=== PATIENT | male | born 1970 | race African-American/Black ===

== ENCOUNTER 2025-02-03 18:53 | Emergency (ER) | payer OTHER, SELFPAY ==
--- NOTE | ~2025-02-03 | XR_ITS ---
XR chest 2V Ordering provider: Sameer Lanier History: 54 years Male with . dizziness . Comparison: None. FINDINGS: MEDIASTINUM: The cardiac silhouette is not enlarged. LUNGS: No infiltrates, effusions or pneumothorax. OTHER: No free air under the diaphragm. Degenerative changes of the spine. IMPRESSION: No acute cardiopulmonary pathology. Reviewed, dictated and finalized at location A.
--- NOTE | ~2025-02-03 | CT_ITS ---
CT brain wo con Ordering provider: Sameer Lanier MD History: 54 years Male with . vertigo . Comparison: None. Technique: CT of the head without contrast. Radiation reduction technique utilized.The dose-length product was 681 mGy-cm. FINDINGS: BRAIN PARENCHYMA AND CSF SPACES: No midline shift, mass effect or hemorrhage. The brain parenchyma a nd CSF spaces are otherwise normal. VISUALIZED PARANASAL SINUSES: Well aerated. MASTOIDS: Well aerated. BONES: The bones appear intact. SOFT TISSUES: Visualized nasopharynx is normal. Superficial soft tissues are normal. IMPRESSION: No acute intracranial findings. Reviewed, dictated and finalized at location A.
[2025-02-03 19:06] VITALS: BP 147/97; PULSE 84; RESP 17; TEMP 36.7; O2SAT 97
--- NOTE | 2025-02-03 19:56 | ECG_ITS ---
Test Date: 2025-02-03 20:27:17 Measurements Intervals Blanket Rate: 88 P: 3 NM: 194 QRS: 31 QRSD: 101 T: 14 QT: 372 QTc: 452 Interpretive Statements SINUS RHYTHM POSSIBLE LEFT ATRIAL ENLARGEMENT [-0.1mV P-WAVE IN V1/V2] PROBABLE INFERIOR MYOCARDIAL INFARCTION , PROBABLY OLD [35 ms Q WAVE IN II/aVF] NONSPECIFIC T-WAVE ABNORMALITY ABNORMAL ECG No previous ECG available for comparison Electronically Signed On 02-04-2025 09:53:33 CDT by Roge Ba M.D.
[2025-02-03 20:19] VITALS: BP 158/109; PULSE 92; RESP 18; O2SAT 98
--- NOTE | 2025-02-03 20:35 | ED_ITS ---
HPI - Dizziness General Chief Complaint: Dizziness Stated Complaint: Vertigo-no history-x 2 days Time Seen by Provider: 02/03/25 20:13 History of Present Illness HPI Narrative: 54-year-old male with history of hypertension presenting to the emergency department for dizziness x2 days consistent with vertigo. Patient states he woke up yesterday feeling dizzy like the room was spinning around him but no associated nausea, vomiting, headache, neck pain, vision changes. He called a friend who advised trying some Raymond maneuvers by himself and this made the symptoms worse and he got a prescription for meclizine which did improve his symptoms yesterday. He states he took the meclizine today with some minor relief but still having some vague symptoms. No trauma or injury. No history of chiropractic manipulations or trauma to the head or neck. No falls, states that he is able ambulate without assistance but states that he feels like the room is spinning around him. No visual deficits or hearing loss, muffled hearing or tinnitus. No recent fever, chills or infectious symptoms. No pain in the ears. No history of vertigo, on some antihypertensive regimen but no recent medication changes. Related Data Allergies Allergy/AdvReac Type Severity Reaction Status Date / Time No Known Allergies Allergy Verified 02/03/25 18:54 Review of Systems 2 Review of Systems: As reviewed above in HPI Exam 2 Narrative: GENERAL: [Well-appearing, well-nourished, and in no acute distress.] HEAD: [Normocephalic, atraumatic.] EYES: [PERRLA and EOMI.] ENT: Nares clear, no rhinorrhea or epistaxis. Mucous membranes moist. NECK: Supple. CHEST: [Clear to auscultation. No respiratory distress.] HEART: [Regular rate and rhythm]. No murmur heard. [Normal peripheral pulses.] ABDOMEN: [Soft, nondistended], [nontender], [No rigidity or guarding] EXTREMITIES: Normal range of motion. [No edema.] SKIN: Warm, dry, no rash. NEURO: [No focal deficits]. Alert and oriented [x3.] Ambulates in a straight line, no ataxia in the arms or legs, no motor or sensation deficits PSYCH: [Normal mood and affect.] Course Vital Signs Vital signs: Vital Signs Temperature 36.7 C 02/03/25 19:06 Pulse Rate 84 02/03/25 19:06 Respiratory Rate 17 02/03/25 19:06 Blood Pressure 147/97 H 02/03/25 19:06 Pulse Oximetry 97 02/03/25 19:06 Oxygen Delivery Room Air 02/03/25 19:06 Temperature 36.7 C 02/03/25 19:06 Pulse Rate 92 02/03/25 20:19 Respiratory Rate 18 02/03/25 20:19 Blood Pressure 158/109 H 02/03/25 20:19 Pulse Oximetry 98 02/03/25 20:19 Oxygen Delivery Room Air 02/03/25 19:06 MDM - Dizziness MDM Narrative Medical decision making narrative: 54-year-old male with history of hypertension presenting with 2 days of vertiginous symptoms. Describes room spinning sensations but no syncope, fever, chills, shortness a breath, chest pain, neck pain, headache, visual deficits or multiple hearing. No trauma. He is otherwise well-appearing ambulatory in a straight line without any difficulty, no ataxia no motor or sensory deficits. He has normal vital signs aside from some stable hypertension. No recent medication changes. Considerations presently are for benign positional paroxysmal vertigo, less likely central etiology of vertigo given his historical features. Workup was ordered including CBC, CMP, magnesium, EKG, chest x-ray and a CT of the brain. He was given Reglan and diphenhydramine as well as a fluid bolus and re-evaluated. Patient re-evaluated after Reglan Benadryl had significant improvement. He was ambulatory without difficulty. His workup was unremarkable. No leukocytosis or anemia. Normal EKG, CT head without any acute intracranial findings. Patient's sinus symptoms are consistent with benign paroxysmal positional vertigo or other peripheral vertigo causes and he can be safely discharged with prescriptions for Reglan as needed as well as his meclizine that has helped him at home and he will be referred to an quantitative researcher for outpatient evaluation. Patient given return precautions and safely discharged. Medical Records Attestation: I reviewed the patient's medical records. Lab Data Attestation: I reviewed the patient's lab results. 02/03/25 20:29 02/03/25 20:29 Labs: Lab Results 02/03/25 Range/Units 20:29 WBC 9.0 (4.5-10.0) K/mm3 RBC 5.76 (4.6-6.20) M/mm3 Hgb 15.4 (14.0-18.0) g/dL Hct 47.5 (42.0-52.0) % MCV 82.5 (80-100) fl MCH 26.7 (26-34) pg MCHC 32.4 (32-36) g/dl RDW 14.6 H (11.5-14.5) % Plt Count 267 (150-375) k/mm3 MPV 9.4 (7.4-10.4) fl Immature Gran % (Auto) 0.3 (0-0.5) % Neut % (Auto) 62.6 (45.5-73.1) % Lymph % (Auto) 26.3 (18.3-44.2) % [place] % (Auto) 6.9 (2.6-8.5) % Eos % (Auto) 2.9 (0-4.4) % Baso % (Auto) 1.0 (0.2-1.2) % Lymph # (Auto) 2.37 (0.9-3.2) K/mm3 [place] # (Auto) 0.6 (0.1-0.6) K/mm3 Eos # (Auto) 0.3 (0-0.3) K/mm3 Baso # (Auto) 0.1 (0.0-0.1) K/mm3 Abs Immat Gran (auto) 0.03 (0.00-0.031) K/mm3 Absolute Neuts (auto) 5.6 (1.3-6.7) K/mm3 Absolute Nucleated RBC 0.000 (0.0-0.012) K/mm3 Nucleated RBC % 0.0 (0.0-0.2) % Sodium 137 (137-145) mmol/L Potassium 3.4 (3.4-5.0) mmol/L Chloride 104 (98-107) mmol/L Carbon Dioxide 23 (22-30) mmol/L Anion Gap 10 (4-12) mmol/L BUN 25 H (9-20) mg/dL Creatinine 1.14 (0.7-1.3) mg/dL Estim Creat Clear Calc 86 ml/min Estimated GFR > 60 (59 - ) Glucose 104 (65-110) mg/dL Calcium 9.3 (8.4-10.2) mg/dL Total Bilirubin 0.8 (0.2-1.3) mg/dL AST 43 (17-59) U/L ALT 45 (6-50) U/L Alkaline Phosphatase 58 (38-126) U/L Total Protein 8.0 (6.3-8.2) g/dL Albumin 4.6 (3.5-5.1) g/dL Imaging Data Attestation: I personally reviewed and interpreted this imaging study as follows: My impression: Impressions Chest X-Ray 02/03/25 21:00 IMPRESSION: No acute cardiopulmonary pathology. Head CT 02/03/25 21:23 IMPRESSION: No acute intracranial findings. ECG Data EKG #1: Attestation: I personally reviewed and interpreted this ECG as follows: ECG completion date: 02/03/25 ECG completion time: 20:27 Prior ECG tracings: not available for review Interpretation: QTC 452, IN interval 194, rate of 88 beats per minute, normal sinus rhythm, no ST segment elevations, depressions acute inversions or ectopy. No previous EKG for comparison. final interpretation is normal sinus rhythm. Discharge Plan Discharge Clinical Impression: Benign paroxysmal positional vertigo Patient Disposition: Home Condition: Stable Instructions: Antibiotic Form, Vertigo (ED), Benign Paroxysmal Positional Vertigo (ED), Dizziness (ED) Additional Instructions: Your imaging studies and laboratory assessments are reassuring, no signs of any causes for central vertigo and your symptom are very classical for benign paroxysmal positional vertigo which is related to the equilibrium system in your ears. Continue taking meclizine that you were prescribed at home and will also send you home with Reglan which can help. You can take these in combination as needed. If symptoms worsen or you develop any differences such as intractable nausea, headaches, inability to ambulate or any other concerns please return to the emergency department otherwise follow-up with the primary care provider and the quantitative researcher that we will refer you to. Patient Language: Iraqi Prescriptions: New metoclopramide HCl [Reglan] 5 mg tablet 5 mg PO Q8H PRN (Reason: vertigo) Qty: 10 0RF Follow-up/Referrals: PHYSICIAN NOT ON STAFF,NONSTAFF [Non-Staff] - Time of Disposition: 21:43
[2025-02-03 20:36] LABS: Basophils Absolute Auto 0.1 K/mm3 (0.0-0.1); Eosinophils Absolute Auto 0.3 K/mm3 (0-0.3); Eosinophils Percent Auto 2.9 % (0-4.4); Hematocrit 47.5 % (42.0-52.0); Hemoglobin 15.4 g/dL (14.0-18.0); Immature Granulocyte Absolute 0.03 K/mm3 (0.00-0.031); Immature Granulocyte Percent A 0.3 % (0-0.5); Lymphocytes Absolute Auto 2.37 K/mm3 (0.9-3.2); Lymphocytes Percent Auto 26.3 % (18.3-44.2); Mean Corpuscular HGB Conc 32.4 g/dl (32-36); Mean Corpuscular Hemoglobin 26.7 pg (26-34); Mean Corpuscular Volume 82.5 fl (80-100); Mean Platelet Volume 9.4 fl (7.4-10.4); Monocytes Absolute Auto 0.6 K/mm3 (0.1-0.6); Monocytes Percent Auto 6.9 % (2.6-8.5); Neutrophils Absolute Auto 5.6 K/mm3 (1.3-6.7); Neutrophils Percent Auto 62.6 % (45.5-73.1); Platelet Count Result 267 k/mm3 (150-375); Red Blood Count 5.76 M/mm3 (4.6-6.20); Red Cell Distribution Width 14.6 % (11.5-14.5)
[2025-02-03] MEDS: SODIUM CHLORIDE 0.9% IV 1,000 ML 999 ML IV CONT (20:37)
[2025-02-03] MEDS: diphenhydrAMINE HCl INJ 50 MG/ML VIAL 25 MG IV PUSH (20:37)
[2025-02-03] MEDS: METOCLOPRAMIDE HCL INJ 10 MG/2 ML VIAL IV PUSH (20:37)
[2025-02-03 20:48] LABS: Alanine Aminotransferase 45 U/L (6-50); Albumin Level 4.6 g/dL (3.5-5.1); Alkaline Phosphatase 58 U/L (38-126); Anion Gap 10 mmol/L (4-12); Aspartate Amino Transferase 43 U/L (17-59); Bilirubin,Total 0.8 mg/dL (0.2-1.3); Blood Urea Nitrogen 25 mg/dL (9-20); Calcium 9.3 mg/dL (8.4-10.2); Carbon Dioxide 23 mmol/L (22-30); Chloride 104 mmol/L (98-107); Estimated CRCL calculation 86 ml/min; Estimated Glomerular Filt Rate > 60; Glucose 104 mg/dL (65-110); Potassium 3.4 mmol/L (3.4-5.0); Sodium 137 mmol/L (137-145)
--- OUTSIDE RECORDS SUMMARY | 2025-02-03 20:59 | XMS_ITS | Referral Summary ---
Author Organization [address] Address [address] [address] Care Team Providers Care Automobile Bumper Straightener Name Role Phone Alfred Kelly MD Primary Care Provider Som Reeves ROLL ICER MACHINE Unavailable [phone] Encounters Date Type Department Care Team Description 02/01/2025 Telephone [facility] Primary Care at [address] [address] Alfred Kelly MD Prior Auth (Wegovy ) 01/26/2025 10:00 AM CDT Office Visit [facility] Gastroenterology at [address] [place] [address] Som Reeves NP Chronic constipation with overflow (Primary Dx); Low fecal elastase level; Bleeding hemorrhoids; Hepatic steatosis; Gastroesophageal reflux disease without esophagitis 12/28/2024 2:39 PM CDT Anesthesia Event [address] [address] Cristopher Tolbert DO Kory, Christopher James, MD 12/28/2024 1:30 PM CDT - 12/28/2024 2:00 PM CDT Surgery [address] [address] Thi Tomas MD SIGMOID BAND LIGATION 12/28/2024 12:30 PM CDT - 12/28/2024 3:41 PM CDT Hospital Encounter [facility] [address] [place] [address] Thi Tomas MD Discharge Disposition: Discharge to home or self care 11/18/2024 6:15 AM RAILROAD PASSENGER AGENT - 11/18/2024 11:59 PM RAILROAD PASSENGER AGENT Hospital Encounter [address] [address] Diarrhea, unspecified type Discharge Disposition: Discharge to home or self care 11/16/2024 Results Follow-Up [facility] Gastroenterology at [address] [place] [address] Som Reeves NP 11/16/2024 9:53 AM RAILROAD PASSENGER AGENT - 11/16/2024 11:59 PM RAILROAD PASSENGER AGENT Hospital Encounter [address] [address] Diarrhea, unspecified type; History of colitis Discharge Disposition: Discharge to home or self care 11/16/2024 9:00 AM RAILROAD PASSENGER AGENT Office Visit [facility] Gastroenterology at [address] [address] Som Reeves NP Diarrhea, unspecified type (Primary Dx); History of colitis; Bleeding hemorrhoids; Hepatic steatosis; Gastroesophageal reflux disease without esophagitis 11/08/2024 Telephone [facility] Gastroenterology at [address] [address] Bria Julio from Last 3 Months Allergies No known active allergies Medications aspirin 81 mg enteric coated tablet Take 1 tablet (81 mg total) by mouth daily Active cholecalciferol (VITAMIN D-3) 3,000 unit tablet Take 0.6667 tablets (2,000 Units total) by mouth daily Active hydrocortisone (ANUSOL-HC) 25 mg suppository Insert 1 suppository (25 mg total) into the rectum 2 (two) times a day as needed for hemorrhoids 24 suppository 3 024 Active hydroCHLOROthiazi de (HYDRODIURIL) 50 mg tabletIndications :Essential hypertension TAKE 1 TABLET BY MOUTH EVERY DAY 90 tablet 1 025 Active atorvastatin (LIPITOR) 20 mg tabletIndications :Hypercholesterem ia Take 1 tablet (20 mg total) by mouth daily 90 tablet [address] (PROTONIX) 20 mg EC tabletIndications :Gastroesophageal reflux disease without esophagitis,Hiata l hernia Take 1 tablet (20 mg total) by mouth daily before breakfast 90 tablet 3 025 Active losartan (COZAAR) 100 mg tabletIndications :Essential hypertension Take 1 tablet (100 mg total) by mouth daily 90 tablet 3 025 Active levothyroxine (SYNTHROID) 112 mcg tabletIndications :Acquired hypothyroidism Take 1 tablet (112 mcg total) by mouth early childhood educator aide before breakfast 90 tablet 3 025 Active Wegovy 2.4 mg/0.75 mL auto-injectorIndi cations:Class 1 obesity due to excess calories with serious comorbidity and body mass index (BMI) of 33.0 to 33.9 in adult Inject 2.4 mg under the skin every 7 days 2 mL 2 025 Active Wegovy 1.7 mg/0.75 mL auto-injector INJECT 1.7MG SUBCUTANEOUSLY WEEKLY 024 2024 Disconti nued(Alt ernate therapy) Wegovy 2.4 mg/0.75 mL auto-injector Inject 2.4 mg under the skin every 7 days 025 2024 Disconti nued(Reo rder) Active Problems Problem Noted Date Diagnosed Date Chronic constipation with overflow 01/26/2025 Bleeding hemorrhoids 11/08/2024 Overview (12/28/2024): Flex SIg 12/2024 Patient Profile: This is a 54 year old male. The patient had recurrent episodes of bright red bleeding per rectum Procedure: Flexible Sigmoidoscopy Indications: Rectal hemorrhage Referring MD: Alfred Kelly M.D. Providers: Thi Tomas M.D. Impression: - Small external hemorrhoids. - Internal hemorrhoids. Medium-sized and congested with stigmata bleeding Banded. - No specimens collected. Pre-diabetes 11/05/2024 Assessment & Plan (11/14/2024 11:32 PM RAILROAD PASSENGER AGENT): New, noted on 10/2024 with level 6.0 To focus on lifestyle and diet management Will recheck labs for next visit Lab Results Component Value Date HGBA1C 6.0 (H) 11/04/2024 Bleeding hemorrhoid 08/16/2024 Assessment & Plan (11/04/2024 9:09 AM RAILROAD PASSENGER AGENT): - recurring condition, not at goal - follows with GI - s/p Colonosocpy on 02/2024 with result as shown below - no constipation, no rectal pain reported - has tried anusol-hcl suppository from GI - will touch base with GI due to ongoing symptoms that is not alleviated Colonoscopy 02/2024 Impression: - The examined portion of the ileum was normal. - Diverticulosis in the entire examined colon. - Mildly erythematous mucosa in the recto-sigmoid colon. Biopsied. - External and internal hemorrhoids. Fatty liver 03/01/2024 Overview (03/01/2024): CT A/p 02/2024 Assessment & Plan (04/13/2024 9:38 AM CDT): Noted on recent CT abdomen and pelvis. Counseled on healthy diet, exercise, weight loss. Keep alcohol in moderation. Hiatal hernia 10/10/2023 Assessment & Plan (11/04/2024 9:00 AM RAILROAD PASSENGER AGENT): Noted on prior EGD. We will put him at higher risk for recurrent acid reflux issues especially if does not follow diet and lifestyle modification Assessment & Plan (10/10/2023 4:12 PM RAILROAD PASSENGER AGENT): Noted on prior EGD. We will put him at higher risk for recurrent acid reflux issues especially if does not follow diet and lifestyle modification Acquired hypothyroidism 10/10/2023 Assessment & Plan (11/14/2024 11:31 PM RAILROAD PASSENGER AGENT): - chronic condition, stable status - currently on Levothyroxine 112 mcg daily - recheck labs, order placed - continue current management Lab Results Component Value Date TSH 1.80 11/04/2024 Assessment & Plan (04/13/2024 9:37 AM CDT): Chronic. May have a degree of slight under replacement given some fatigue and weight gain. Check thyroid level and adjust as needed Assessment & Plan (10/10/2023 4:13 PM RAILROAD PASSENGER AGENT): Chronic. Biochemically and clinically euthyroid. He will get me a copy of the recent TSH to review Class 1 obesity due to exces s calories with serious comorbidity and body mass index (BMI) of 33.0 to 33.9 in adult 10/10/2023 Assessment & Plan (11/14/2024 11:33 PM RAILROAD PASSENGER AGENT): Wt Readings from Last 3 Encounters: 11/04/24 113.7 kg (250 lb 11.2 oz) 08/16/24 115.3 kg (254 lb 3.2 oz) 04/13/24 124.2 kg (273 lb 14.4 oz) Body mass index is 33.08 kg/m . - chronic condition, not at goal - BMI Follow-up includes: nutrition counseling, exercise counseling and education provided - Recommend to exercise at least 30 minutes moderate to vigorous exercise most days of the week. (minimum 150 minutes weekly) - has been on Wegovy since 07/2024 - has had about 30 lbs of weight loss since being on it - to resume Wegovy which he had stopped for Gi disturbance Assessment & Plan (04/13/2024 9:38 AM CDT): Chronic. Suboptimally controlled and worsening. Encouraged healthy diet, exercise, weight loss. Patient is interested in doing Wegovy. If thyroid level is not out arrange then we can start a course of Wegovy. We did discuss side effects and use. He does believe his insurance covers it and has a letter stating that it will be covered and benefits for this year as long as he enrolls in his weight loss management plan as well Assessment & Plan (10/10/2023 4:15 PM RAILROAD PASSENGER AGENT): Suboptimally controlled. Counseled on healthy diet, exercise and weight loss as able GERD (gastroesophageal reflux disease) Assessment & Plan (11/04/2024 11:12 AM RAILROAD PASSENGER AGENT): - chronic condition, stable status - currently on Pantoprazole DR 20 mg daily - s/p EGD in remote past in [place] 5-10 years ago per patient, noted to have hiatal hernia in past EGD - continue current management Assessment & Plan (10/10/2023 4:11 PM RAILROAD PASSENGER AGENT): Chronic. Controlled with pantoprazole 20 mg daily. Continue for now. He will be at increased risk for having recurrent issues given history of hiatal hernia. Hopefully through improve dietary changes he will be eventually able to get off medication but this may not be possible. 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 He was under the observation of Dermatology and Oncology in [place]. Referral to Dermatology for observation here Essential hypertension 08/30/2019 Assessment & Plan (11/14/2024 11:31 PM RAILROAD PASSENGER AGENT): Blood Pressure Management BP Readings from Last 3 Encounters: 11/04/24 134/82 08/16/24 136/88 04/13/24 112/82 Chronic condition Status - is adequately controlled. Current medications are: HCTZ 50 mg daily, Losartan 100 mg daily Patient is compliant with medications. Patient denies any side effects or adverse side effects from the medication/s. Follow a low salt diet Monitor blood pressure regularly at home Continue current management unless change made above The ASCVD Risk score (Cory ANAYA, et al., 2019) failed to calculate for the following reasons: The valid total cholesterol range is 130 to 320 mg/dL Lab Results Component Value Date LDLCALC 59 11/04/2024 Lab Results Component Value Date GLUCOSE 97 11/04/2024 CALCIUM 9.9 11/04/2024 SODIUM 139 11/04/2024 POTASSIUM 3.9 11/04/2024 CO2 25 11/04/2024 CHLORIDE 101 11/04/2024 BUNSER 16 11/04/2024 CREATININE 1.11 11/04/2024 Assessment & Plan (04/13/2024 9:37 AM CDT): Chronic. HTN controlled. Cont prescription Rx as indicated in HPI under HTN diagnosis. Low sodium diet (DASH or Mediterranean), exercise, wt loss (if over weight) discussed Assessment & Plan (10/10/2023 4:11 PM RAILROAD PASSENGER AGENT): Chronic. Controlled on rechecked. He is currently tolerating the higher dose of hydrochlorothiazide we will we feel at that dose. Other blood pressure medications refilled. Encouraged healthy diet, salt restriction, regular physical activity and weight loss. Encouraged home blood pressure monitoring with goal less than 140/90 Hypercholesteremia 08/30/2019 Assessment & Plan (11/14/2024 11:31 PM RAILROAD PASSENGER AGENT): - chronic condition - status: is adequately controlled. - current management/medications: Atorvastatin 20 mg daily - other comorbid conditions:hypertension, obesity - patient is compliant with medications. - most recent LDL as shown below - maintain a healthy weight, diet - will monitor closely - continue current management, recheck labs, order placed Lab Results Component Value Date LDLCALC 59 11/04/2024 Lab Results Component Value Date ALT 40 11/04/2024 AST 36 11/04/2024 ALKPHOS 62 11/04/2024 BILITOT 0.5 11/04/2024 Assessment & Plan (04/13/2024 9:37 AM CDT): Chronic. Tolerates medication. Check cholesterol level and adjust medication as needed Assessment & Plan (10/10/2023 4:12 PM RAILROAD PASSENGER AGENT): Chronic. Tolerates cholesterol medication. LDL was less than 70 on his recent labs. Patient will sign up for [employer] and send me a copy of the recent labs he would done through his last PCP Psoriasis 08/30/2019 Assessment & Plan (10/10/2023 4:12 PM RAILROAD PASSENGER AGENT): Chronic. Minimal symptoms currently. He has not currently on any disease modifying medication. We will have him see Dermatology Resolved Problems Problem Noted Date Diagnosed Date Resolved Date Non-recurrent bilateral ingu inal hernia without obstruction or gangrene 03/01/2024 11/04/19 25 Umbilical hernia without obs truction and without gangrene 03/01/2024 11/04/2024 Diverticulosis 03/01/2024 11/04/2024 Bright red blood per rectum 01/27/2024 11/04/2024 Juan blood in stool 01/27/2024 024 Immunizations Immunization Administration Dates Next Due Influenza, Trivalent, IM (MDV) 07/23/2019 Influenza, Unspecified 07/23/2024,2023(Deferred: Patient Refused),08/26/2022 Pneumococcal Conjugate Pcv20 08/26/2022 Tdap 08/23/2020 ZOSTER Recombinant 03/19/2021,08/23/2020 Social History Tobacco Use Types Packs/Day Years Used Date Smoking Tobacco: Never Passive Smoke Exposure: Never Smokeless Tobacco: Never Tobacco Cessation:Counseling Given: Not Answered AUDIT-C Answer Date Recorded Q1: How often do you have a drink containing alc ohol? Monthly or less 01/26/2025 Q2: How many drinks containi ng alcohol do you have on a typical day when you are drinking? 3 or 4 01/26/2025 Q3: How often do you have si x or more drinks on one occasion? Weekly 01/26/2025 PHQ-2 Answer Date Recorded PHQ-2 Total Score (If total score is 3 or more points, staff should administer the PHQ-9) 0 11/04/2024 Personal Safety Answer Date Recorded Have you ever been in or are you currently in a harmful physical or emotional relationship or is someone making you feel afraid or unsafe? Denies 12/28/2024 Sex and Gender Information Value Date Recorded Sex Assigned at Not on file Legal Sex Male 11:46 AM RAILROAD PASSENGER AGENT Gender Identity Not on file Sexual Orientation Not on file Last Filed Vital Signs Vital Sign Reading Time Taken Comments Blood Pressure 149/91 01/26/2025 9:58 AM CDT Pulse 84 01/26/2025 9:58 AM CDT Temperature 36.8 C (98.2 F) 12/28/2024 3:26 PM CDT Respiratory Rate 18 12/28/2024 3:26 PM CDT Oxygen Saturation 97% 01/26/2025 9:58 AM CDT Inhaled Oxygen Concentration - - Weight 115.2 kg (254 lb) 01/26/2025 9:58 AM CDT Height 185.4 cm (6' 1 ) 01/26/2025 9:58 AM CDT Body Mass Index 33.51 01/26/2025 9:58 AM CDT Plan of Treatment Not on file Procedures Procedure Name Priority Date/Time Associated Diagnosis Comments SIGMOID BAND LIGATION 12/28/2024 2:32 PM CDT Bleeding hemorrhoids Case Notes Hemorrhoid banding needed FLEXIBLE SIGMOIDOSCOPY 12:33 PM CDT PANCREATIC ELASTASE, STOOL Routine 11/18/2024 6:15 AM RAILROAD PASSENGER AGENT Diarrhea, unspecified type CALPROTECTIN, FECAL Routine 11/18/2024 6:15 AM RAILROAD PASSENGER AGENT Diarrhea, unspecified type LEUKOCYTES, FECAL Routine 11/18/2024 6:1 5 AM RAILROAD PASSENGER AGENT Diarrhea, unspecified type H. PYLORI ANTIGEN, STOOL Routine 11/18/2024 6:15 AM RAILROAD PASSENGER AGENT Diarrhea, unspecified type CRYPTOSPORIDIUM AND GIARDIA ANTIGEN ASSAY Routine 11/18/2024 6:15 AM RAILROAD PASSENGER AGENT Diarrhea, unspecified type C. DIFFICILE TESTING Routine 11/18/2024 6:15 AM RAILROAD PASSENGER AGENT Diarrhea, unspecified type STOOL CULTURE Routine 11/18/2024 6:15 AM RAILROAD PASSENGER AGENT Diarrhea, unspecified type XR KUB Schedule ESPERANZA, Read Routine (Patient lives out of area) 11/16/2024 10:04 AM RAILROAD PASSENGER AGENT Diarrhea, unspecified type History of colitis PSA SCREEN Routine 11/04/2024 9:13 AM RAILROAD PASSENGER AGENT Prostate cancer screening HEPATITIS PANEL, ACUTE Routine 1:35 PM CDT Hepatic steatosis COLONOSCOPY 03/03/2024 8:11 AM CDT from Last 3 Months or Most Recently Relevant to Health Maintenance Results * Flexible Sigmoidoscopy (12/28/2024 12:33 PM CDT) Anatomical Region Laterality Modality Other Narrative Procedure Note Thi Tomas MD - 12/28/2024 12:33 PM CDT [facility] Patient Name: Cristina Rain Procedure Date: 12/28/2024 12:33 PM Date of : 1970 Admit Type: Outpatient Age: 54 Gender: Male Attending MD: Thi Tomas M.D. Room: [facility] ENDOSCOPY ROOM 1 Note Status: Finalized Patient Profile: This is a 54 year old male. The patient hadrecurrent episodes of bright red bleeding per rectum Procedure: Flexible Sigmoidoscopy Indications: Rectal hemorrhage Referring MD: Alfred Kelly M.D. Providers: Thi Tomas M.D. Impression: - Small external hemorrhoids. - Internal hemorrhoids. Medium-sized and congested with stigmata bleeding Banded. - No specimens collected. Recommendation: - Continue present medications. - Use [id number] fiber supplements daily. Medicines: Monitored Anesthesia Care Complications: No immediate complications. Estimated Blood Loss: Estimated blood loss: none. Procedure: Pre-Anesthesia Assessment: - Prior to the procedure, a History and Physicalwas performed, and patient medications and allergieswere reviewed. The patient's tolerance of previous anesthesia was also reviewed. The risks andbenefits of the procedure and the sedation options and risks were discussed with the patient. All questions were answered, and informed consent was obtained. Prior Anticoagulants: The patient has taken noanticoagulant or antiplatelet agents. ASA Grade Assessment: Per anesthesia note and evaluation. After reviewing the risks and benefits, the patient was deemed in satisfactory condition to undergo the procedure. The benefits, risks, and alternatives to theprocedure and sedation were discussed and informed consentwas obtained. The Endoscope [id number] was introduced through the anus and advanced to the the sigmoid colon. The flexible sigmoidoscopy was accomplished without difficulty. The patienttolerated the procedure well. The quality of the bowel preparation was adequate. Findings: Hemorrhoids were found on perianal exam. The sigmoid colon appeared normal. Diverticulosis noted in thesigmoid colon Internal hemorrhoids were found during retroflexion. The hemorrhoids were medium-sized congested with stigmata of bleeding. Three bandswere successfully placed. There was no bleeding during and at the end ofthe procedure. Electronically signed by Thi Tomas M.D. Thi Tomas M.D. 12/28/2024 3:00:36 PM Number of Addenda: 0 Note Initiated On: 12/28/2024 12:33 PM Procedure Code(s): --- Professional --- 90162, Sigmoidoscopy, flexible; with band ligation(s) (eg,hemorrhoids) Diagnosis Code(s): --- Professional --- K64.8, Other hemorrhoids K62.5, Hemorrhage of anus and rectum CPT copyright 2020 [employer]. All rights reserved. The codes documented in this report are preliminary and upon wall attendant reviewmay be revised to meet current compliance requirements. Recognized by the [employer] for promoting quality in endoscopy Thi Tomas MD ENDOSCOPY PROCEDURES Final Result * C. difficile testing Stool (11/18/2024 6:15 AM RAILROAD PASSENGER AGENT) Pathologist [facility] Result Negative Negative Toxin Result Negative Negative [facility] ([place]) C. diff result Negative, free toxin Negative, free toxin [facility] ([place]) C. diff interp Negative for toxigenic Clostridioides (Clostridium) difficile. Analysis was performed using a glutamate dehydrogenase antigen detection assay combined with a C. difficile toxin detection assay. [facility] ([place] Stool 11/18/2024 6:15 AM RAILROAD PASSENGER AGENT 11/18/2024 7:46 AM RAILROAD PASSENGER AGENT Som Reeves NP LAB MICROBIOLOGY - GENERAL ORDERABLES Final Result Performing Organization Address [facility] de Phone Number [facility] ([place]) [address] [facility] [place] [address] * (ABNORMAL) Calprotectin, fecal (11/18/2024 6:15 AM RAILROAD PASSENGER AGENT) [facility] Calprotectin, fecal 105(H) <50.0 (Normal) mcg/g [facility] ref Lab Comment: Interpretation: Borderline (50.0-120 mcg/g) Test Performed by: [place] [address] [employer] Coxswain: Brittney Kinney Ph.D.; CLIA# [id number] Stool 11/18/2024 6:15 AM RAILROAD PASSENGER AGENT 11/18/2024 7:46 AM RAILROAD PASSENGER AGENT Som Reeves NP LAB BODY FLUIDS AND STOOLS ORDERABLES Final Result Performing Organization Address City/[facility]/ZIP Co de Phone Number [facility] ([place]) 1 [facility] [place] [address] [place] ref Lab * Leukocytes, fecal (11/18/2024 6:15 AM RAILROAD PASSENGER AGENT) WBC, fecal No leukocytes No leukocytes Comment: Interpretive Data Testing performed by microsopy. Current Interpretive Data was last revised on 2023 Stool 11/18/2024 6:15 AM RAILROAD PASSENGER AGENT 11/18/2024 7:46 AM RAILROAD PASSENGER AGENT [facility] ROLL ICER MACHINE LAB BODY FLUIDS AND STOOLS ORDERABLES Final Result [facility] ([place]) 1 [facility] [employer] [facility] [place], [place] [id number] * Cryptosporidium and Giardia antigen assay Stool (11/18/2024 6:15 AM RAILROAD PASSENGER AGENT) Pathologist [facility] Giardia Ag Negative Negative Comment:Testing performed by : [facility], [address] [place] [address]., [address] Cryptosporidium Ag Negative Negative [facility] ([place]) Comment: Interpretive data: Testing performed by the [facility] Microbiology Laboratory using an immunoassay that detects Cryptosporidium and Giardia antigens in stool specimens. If comprehensive examination for ova and parasites is required, please request Ova and Parasite Examination . Testing performed by: [facility], [address] [place]., [address] Stool 11/18/2024 6:15 AM RAILROAD PASSENGER AGENT 11/18/2024 10:09 AM RAILROAD PASSENGER AGENT [facility] LAB MICROBIOLOGY - GENERAL ORDERABLES Final Result [facility] ([place]) [address] [facility] [place] [address] * (ABNORMAL) Pancreatic elastase, stool (11/18/2024 6:15 AM RAILROAD PASSENGER AGENT) Pancreatic elastase, stool 59(L) >200 (Normal) mcg/g [place] ref Lab Comment: Interpretation: Abnormal (<100 mcg/g); Consistent with pancreatic insufficiency Test Performed by: [facility] [address] [place] [address] [employer] Coxswain: Brittney Kinney Ph.D.; IA# [id number] Stool 11/18/2024 6:15 AM RAILROAD PASSENGER AGENT 11/18/2024 7:46 AM RAILROAD PASSENGER AGENT [facility] ROLL ICER MACHINE LAB BODY FLUIDS AND STOOLS ORDERABLES Final Result [facility] ([place]) [address] [place] [address] [facility] Lab * H. pylori antigen, stool Stool (11/18/2024 6:15 AM RAILROAD PASSENGER AGENT) H. pylori Ag, stool Negative Negative Comment: Interpretative Data Testing performed at the [facility]biology Laboratory using the Gliphian HpSA lateral flow immunoassay that detects Helicobacter pylori antigen in feces. This test is FDA cleared and its performance characteristics have been verified by the performing laboratory. False negative H. pylori antigen results may occur in patients on antimicrobials, proton pump inhibitors, or bismuth preparations; if clinically indicated, testing should be repeated on a new specimen two weeks after discontinuing these treatments. Interpretative data last revised September 2020. Testing performed by: [facility], [address] [place] [address] Stool 11/18/2024 6:15 AM RAILROAD PASSENGER AGENT 11/18/2024 12:29 PM RAILROAD PASSENGER AGENT [facility] ROLL ICER MACHINE LAB MICROBIOLOGY - GENERAL ORDERABLES Final Result [facility] ([place]) [address] [facility] [place] [address] * Stool culture Stool Rectum (11/18/2024 6:15 AM RAILROAD PASSENGER AGENT) Direct Specimen Exam Shiga Toxin Testing: Antigen detection assay for Shiga-toxin NEGATIVE for Shiga Toxin 1 and Shiga Toxin 2. Comment:Testing performed by : [facility], [address] [place]., [address] Report Final Report: No growth of enteric bacterial pathogens JORGE CHEW (LINDA) Comment:Testing performed by : [facility], [address] [place]., [address] Stool (Rectum) 11/18/2024 6: 15 AM RAILROAD PASSENGER AGENT 11/18/2024 10:07 AM RAILROAD PASSENGER AGENT Narrative JORGE CHEW (LINDA) - 11/22/2024 8:56 AM RAILROAD PASSENGER AGENT Testing performed by [facility] ([phone]). Routine stool cultures include procedures to detect Salmonella, Shigella, Edwardsiella, Aeromonas, Pleisiomonas, Campylobacter, Yersinia, E. coli O157, and Shiga-like toxins. Vibrio is cultured only upon special request. If Vibrio is suspected, please call the laboratory at [phone]. Interpretive data was last updated January 27, 2017. Som Reeves [facility] MICROBIOLOGY - GENERAL ORDERABLES Final Result JORGE CHEW (LINDA) 1 [facility] [place] [address] * XR Kub (11/16/2024 10:04 AM RAILROAD PASSENGER AGENT) Anatomical Region Laterality Modality Body, Abdomen N/A Computed Radiogr aphy 11/16/2024 12:1 3 PM RAILROAD PASSENGER AGENT Narrative 11/16/2024 12:14 PM RAILROAD PASSENGER AGENT EXAM DESCRIPTION: XR KUB REASON FOR STUDY: Having diarrhea issues. On Wegovy. Rule out constipation as cause of diarrhea. What is fecal load and gas pattern?, What is stool and gas pattern? Rule out constipation. Complaints of diarrhea x 1 month. No complaints of pain. TECHNIQUE: 1 radiographic view of the abdomen. COMPARISON: 02/27/2024 FINDINGS: BOWEL: Nonobstructive gas pattern. Moderate colonic stool burden primarily within the descending and sigmoid colon. SOFT TISSUES: No abnormal calcifications. LINES/TUBES: None. BONES: Levocurvature of the spine appears positional. IMPRESSION: Nonobstructive bowel gas pattern. Moderate colonic stool burden. THIS IS AN ELECTRONICALLY VERIFIED FINAL REPORT 11/16/2024 12:14 PM - Electronically signed by Enzo Morgan M.D. MM: MM Report ID: [id number] Reading Location: [id number] Procedure Note Enzo Morgan MD - 11/16/2024 EXAM DESCRIPTION: XR KUB REASON FOR STUDY: Having diarrhea issues. On Wegovy. Rule outconstipation as cause of diarrhea. What is fecal load and gas pattern?, What is stooland gas pattern? Rule out constipation. Complaints of diarrhea x 1 month. No complaints of pain. TECHNIQUE: 1 radiographic view of the abdomen. COMPARISON: 02/27/2024 FINDINGS: BOWEL: Nonobstructive gas pattern. Moderate colonic stool burdenprimarily within the descending and sigmoid colon. SOFT TISSUES: No abnormal calcifications. LINES/TUBES: None. BONES: Levocurvature of the spine appears positional. IMPRESSION: Nonobstructive bowel gas pattern. Moderate colonic stool burden. THIS IS AN ELECTRONICALLY VERIFIED FINAL REPORT 11/16/2024 12:14 PM - Electronically signed by Enzo Morgan M.D. MM: MM Report ID: [id number] Reading Location: [id number] [facility] IMG XR PROCEDURES F inal Result * PSA screen (11/04/2024 9:13 AM RAILROAD PASSENGER AGENT) PSA-Total 3.14 <=3.90 ng/mL Comment: Interpretive Data AGE SEX REFERENCE INTERVAL 0 minutes-150 years Female None 0 minutes-49 years Male None 50-59 years Male 0-3.90 60-69 years Male 0-5.40 70-79 years Male 0-6.20 80-150 years Male 0-6.20 The Demian PSA Total assay procedure was used. Results from different manufacturers or methods may not be comparable. Serial testing should be performed using the same method. Current interpretive data last revised 22. Blood 11/04/2024 9:13 AM RAILROAD PASSENGER AGENT 11/04/2024 9:17 PM RAILROAD PASSENGER AGENT Alfred Kelly MD LAB BLOOD ORDERABLES Fi nal Result [address] Department [place] [address] * Hepatitis panel, acute Blood (04/12/2024 1:35 PM CDT) Hep A IgM Nonreactive Nonreactive Comment: Interpretive Data: If Hep A IgM Ab is reported as Equivocal, a new sample should be drawn in two weeks for testing. Current interpretive data was last revised on 19. Testing performed by: [address] [address] Hep B core IgM Nonreactive Nonreactive Oliva CHEW (LINDA) Comment: Interpretive Data If HepB Core IgM Ab is reported as Equivocal, a new sample should be drawn in two weeks for testing. Current interpretive data was last revised on 19. Testing performed by: [address] [address] Hep C Ab Nonreactive Nonreactive JORGE CHEW (LINDA) Comment: Interpretive Data Nonreactive: Antibodies to HCV not detected. Does NOT exclude the possibility of recent exposure to HCV. Equivocal: Equivocal for HCV antibodies. Supplemental molecular testing will be automatically performed to determine infection status in accordance with current CDC screening recommendations. Reactive: Positive for HCV antibodies. This may represent current or past HCV infection. Supplemental molecular testing will be automatically performed to determine current infection status in accordance with current CDC screening recommendations. Interpretive data was last revised on 2019. Testing performed by: [address] [address] HepBsAg Nonreactive Nonreactive JORGE CHEW (LINDA) Comment:Testing performed by : [address] [address] Blood 04/12/2024 1:35 PM CDT 04/12/2024 10:29 PM CDT us Peggy [facility] MICROBIOLOGY - GENER AL ORDERABLES Final Result JORGE CHEW [place] 1 [facility] [place] [address] * Colonoscopy (03/03/2024 8:11 AM CDT) Anatomical Region Laterality Modality Other Narrative Procedure Note Abrahan Zarate MD - 03/03/2024 8:11 AM CDT [facility] Patient Name: Cristina Rain Procedure Date: 03/03/2024 8:11 AM Date of : 1970 Admit Type: Outpatient Age: 53 Gender: Male Attending MD: Abrahan Zarate M.D. Room: [facility] ENDOSCOPY ROOM 2 Note Status: Finalized Patient Profile: This is a 53 year old male history of HTN, GERD,HLD, lymphoma, hypothyroidism, hepatic steatosis herefor colonoscopy to evaluate for intermittent bloodmixed in with stool. No family history of colon cancer. Colonoscopy 4 years ago per patient with normal findings but no record for review Procedure: Colonoscopy Indications: Last colonoscopy within the past 3 years,Hematochezia Referring MD: Anisha Wynn M.D. Providers: Abrahan Zarate M.D. Impression: - The examined por [id number]|2025-02-03 20:59:00|2025-02-03 20:58:00|XMS_ITS|AMY YOUNG|External Medical Summaries|[id number]|" Clinical Summary Created on: February 03, 2025 DaveJohn sanchezhyacinth Yanet : 1970 Sex: Male Author Organization [address] [address] Care Team Providers Care Automobile Bumper Straightener Name Role Phone Alfred Kelly MD Primary Care Provider Som Reeves NP Unavailable [phone] Allergies No known active allergies Medications aspirin 81 mg enteric coated tablet Take 1 tablet (81 mg total) by mouth daily Active cholecalciferol (VITAMIN D-3) 3,000 unit tablet Take 0.6667 tablets (2,000 Units total) by mouth daily Active hydrocortisone (ANUSOL-HC) 25 mg suppository Insert 1 suppository (25 mg total) into the rectum 2 (two) times a day as needed for hemorrhoids 24 suppository 3 024 Active hydroCHLOROthiazi de (HYDRODIURIL) 50 mg tabletIndications :Essential hypertension TAKE 1 TABLET BY MOUTH EVERY DAY 90 tablet 1 025 Active atorvastatin (LIPITOR) 20 mg tabletIndications :Hypercholesterem ia Take 1 tablet (20 mg total) by mouth daily 90 tablet [address] (PROTONIX) 20 mg EC tabletIndications :Gastroesophageal reflux disease without esophagitis,Hiata l hernia Take 1 tablet (20 mg total) by mouth daily before breakfast 90 tablet 3 025 Active losartan (COZAAR) 100 mg tabletIndications :Essential hypertension Take 1 tablet (100 mg total) by mouth daily 90 tablet 3 025 Active levothyroxine (SYNTHROID) 112 mcg tabletIndications :Acquired hypothyroidism Take 1 tablet (112 mcg total) by mouth early childhood educator aide before breakfast 90 tablet 3 025 Active Wegovy 2.4 mg/0.75 mL auto-injectorIndi cations:Class 1 obesity due to excess calories with serious comorbidity and body mass index (BMI) of 33.0 to 33.9 in adult Inject 2.4 mg under the skin every 7 days 2 mL 2 025 Active Wegovy 1.7 mg/0.75 mL auto-injector INJECT 1.7MG SUBCUTANEOUSLY WEEKLY 024 2024 Disconti nued(Alt ernate therapy) Wegovy 2.4 mg/0.75 mL auto-injector Inject 2.4 mg under the skin every 7 days 025 2024 Disconti nued(Reo rder) Active Problems Problem Noted Date Diagnosed Date Chronic constipation with overflow 01/26/2025 Bleeding hemorrhoids 11/08/2024 Overview (12/28/2024): Flex SIg 12/2024 Patient Profile: This is a 54 year old male. The patient had recurrent episodes of bright red bleeding per rectum Procedure: Flexible Sigmoidoscopy Indications: Rectal hemorrhage Referring MD: Alfred Kelly M.D. Providers: Thi Tomas M.D. Impression: - Small external hemorrhoids. - Internal hemorrhoids. Medium-sized and congested with stigmata bleeding Banded. - No specimens collected. Pre-diabetes 11/05/2024 Assessment & Plan (11/14/2024 11:32 PM RAILROAD PASSENGER AGENT): New, noted on 10/2024 with level 6.0 To focus on lifestyle and diet management Will recheck labs for next visit Lab Results Component Value Date HGBA1C 6.0 (H) 11/04/2024 Bleeding hemorrhoid 08/16/2024 Assessment & Plan (11/04/2024 9:09 AM RAILROAD PASSENGER AGENT): - recurring condition, not at goal - follows with GI - s/p Colonosocpy on 02/2024 with result as shown below - no constipation, no rectal pain reported - has tried anusol-hcl suppository from GI - will touch base with GI due to ongoing symptoms that is not alleviated Colonoscopy 02/2024 Impression: - The examined portion of the ileum was normal. - Diverticulosis in the entire examined colon. - Mildly erythematous mucosa in the recto-sigmoid colon. Biopsied. - External and internal hemorrhoids. Fatty liver 03/01/2024 Overview (03/01/2024): CT A/p 02/2024 Assessment & Plan (04/13/2024 9:38 AM CDT): Noted on recent CT abdomen and pelvis. Counseled on healthy diet, exercise, weight loss. Keep alcohol in moderation. Hiatal hernia 10/10/2023 Assessment & Plan (11/04/2024 9:00 AM RAILROAD PASSENGER AGENT): Noted on prior EGD. We will put him at higher risk for recurrent acid reflux issues especially if does not follow diet and lifestyle modification Assessment & Plan (10/10/2023 4:12 PM RAILROAD PASSENGER AGENT): Noted on prior EGD. We will put him at higher risk for recurrent acid reflux issues especially if does not follow diet and lifestyle modification Acquired hypothyroidism 10/10/2023 Assessment & Plan (11/14/2024 11:31 PM RAILROAD PASSENGER AGENT): - chronic condition, stable status - currently on Levothyroxine 112 mcg daily - recheck labs, order placed - continue current management Lab Results Component Value Date TSH 1.80 11/04/2024 Assessment & Plan (04/13/2024 9:37 AM CDT): Chronic. May have a degree of slight under replacement given some fatigue and weight gain. Check thyroid level and adjust as needed Assessment & Plan (10/10/2023 4:13 PM RAILROAD PASSENGER AGENT): Chronic. Biochemically and clinically euthyroid. He will get me a copy of the recent TSH to review Class 1 obesity due to exces s calories with serious comorbidity and body mass index (BMI) of 33.0 to 33.9 in adult 10/10/2023 Assessment & Plan (11/14/2024 11:33 PM RAILROAD PASSENGER AGENT): Wt Readings from Last 3 Encounters: 11/04/24 113.7 kg (250 lb 11.2 oz) 08/16/24 115.3 kg (254 lb 3.2 oz) 04/13/24 124.2 kg (273 lb 14.4 oz) Body mass index is 33.08 kg/m . - chronic condition, not at goal - BMI Follow-up includes: nutrition counseling, exercise counseling and education provided - Recommend to exercise at least 30 minutes moderate to vigorous exercise most days of the week. (minimum 150 minutes weekly) - has been on Wegovy since 07/2024 - has had about 30 lbs of weight loss since being on it - to resume Wegovy which he had stopped for Gi disturbance Assessment & Plan (04/13/2024 9:38 AM CDT): Chronic. Suboptimally controlled and worsening. Encouraged healthy diet, exercise, weight loss. Patient is interested in doing Wegovy. If thyroid level is not out arrange then we can start a course of Wegovy. We did discuss side effects and use. He does believe his insurance covers it and has a letter stating that it will be covered and benefits for this year as long as he enrolls in his weight loss management plan as well Assessment & Plan (10/10/2023 4:15 PM RAILROAD PASSENGER AGENT): Suboptimally controlled. Counseled on healthy diet, exercise and weight loss as able GERD (gastroesophageal reflux disease) Assessment & Plan (11/04/2024 11:12 AM RAILROAD PASSENGER AGENT): - chronic condition, stable status - currently on Pantoprazole DR 20 mg daily - s/p EGD in remote past in [place] 5-10 years ago per patient, noted to have hiatal hernia in past EGD - continue current management Assessment & Plan (10/10/2023 4:11 PM RAILROAD PASSENGER AGENT): Chronic. Controlled with pantoprazole 20 mg daily. Continue for now. He will be at increased risk for having recurrent issues given history of hiatal hernia. Hopefully through improve dietary changes he will be eventually able to get off medication but this may not be possible. 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 He was under the observation of Dermatology and Oncology in [place]. Referral to Dermatology for observation here Essential hypertension 08/30/2019 Assessment & Plan (11/14/2024 11:31 PM RAILROAD PASSENGER AGENT): Blood Pressure Management BP Readings from Last 3 Encounters: 11/04/24 134/82 08/16/24 136/88 04/13/24 112/82 Chronic condition Status - is adequately controlled. Current medications are: HCTZ 50 mg daily, Losartan 100 mg daily Patient is compliant with medications. Patient denies any side effects or adverse side effects from the medication/s. Follow a low salt diet Monitor blood pressure regularly at home Continue current management unless change made above The ASCVD Risk score (Cory ANAYA, et al., 2019) failed to calculate for the following reasons: The valid total cholesterol range is 130 to 320 mg/dL Lab Results Component Value Date LDLCALC 59 11/04/2024 Lab Results Component Value Date GLUCOSE 97 11/04/2024 CALCIUM 9.9 11/04/2024 SODIUM 139 11/04/2024 POTASSIUM 3.9 11/04/2024 CO2 25 11/04/2024 CHLORIDE 101 11/04/2024 BUNSER 16 11/04/2024 CREATININE 1.11 11/04/2024 Assessment & Plan (04/13/2024 9:37 AM CDT): Chronic. HTN controlled. Cont prescription Rx as indicated in HPI under HTN diagnosis. Low sodium diet (DASH or Mediterranean), exercise, wt loss (if over weight) discussed Assessment & Plan (10/10/2023 4:11 PM RAILROAD PASSENGER AGENT): Chronic. Controlled on rechecked. He is currently tolerating the higher dose of hydrochlorothiazide we will we feel at that dose. Other blood pressure medications refilled. Encouraged healthy diet, salt restriction, regular physical activity and weight loss. Encouraged home blood pressure monitoring with goal less than 140/90 Hypercholesteremia 08/30/2019 Assessment & Plan (11/14/2024 11:31 PM RAILROAD PASSENGER AGENT): - chronic condition - status: is adequately controlled. - current management/medications: Atorvastatin 20 mg daily - other comorbid conditions:hypertension, obesity - patient is compliant with medications. - most recent LDL as shown below - maintain a healthy weight, diet - will monitor closely - continue current management, recheck labs, order placed Lab Results Component Value Date LDLCALC 59 11/04/2024 Lab Results Component Value Date ALT 40 11/04/2024 AST 36 11/04/2024 ALKPHOS 62 11/04/2024 BILITOT 0.5 11/04/2024 Assessment & Plan (04/13/2024 9:37 AM CDT): Chronic. Tolerates medication. Check cholesterol level and adjust medication as needed Assessment & Plan (10/10/2023 4:12 PM RAILROAD PASSENGER AGENT): Chronic. Tolerates cholesterol medication. LDL was less than 70 on his recent labs. Patient will sign up for [employer] and send me a copy of the recent labs he would done through his last PCP Psoriasis 08/30/2019 Assessment & Plan (10/10/2023 4:12 PM RAILROAD PASSENGER AGENT): Chronic. Minimal symptoms currently. He has not currently on any disease modifying medication. We will have him see Dermatology Resolved Problems Problem Noted Date Diagnosed Date Resolved Date Non-recurrent bilateral ingu inal hernia without obstruction or gangrene 03/01/2024 11/04/19 25 Umbilical hernia without obs truction and without gangrene 03/01/2024 11/04/2024 Diverticulosis 03/01/2024 11/04/2024 Bright red blood per rectum 01/27/2024 11/04/2024 Juan blood in stool 01/27/2024 024 Encounters Date Type Department Care Team Description 02/01/2025 Telephone [facility] Medical [facility] Primary Care at [address] [address] Alfred Kelly MD Prior Auth (Wegovy ) 01/26/2025 10:00 AM CDT Office Visit [facility] at [address] [place] [address] Som Reeves NP Chronic constipation with overflow (Primary Dx); Low fecal elastase level; Bleeding hemorrhoids; Hepatic steatosis; Gastroesophageal reflux disease without esophagitis 12/28/2024 2:39 PM CDT Anesthesia Event [address] [address] Cristopher Tolbert DO Kory, Christopher James, MD 12/28/2024 1:30 PM CDT - 12/28/2024 2:00 PM CDT Surgery [address] [address] Thi Tomas MD SIGMOID BAND LIGATION 12/28/2024 12:30 PM CDT - 12/28/2024 3:41 PM CDT Hospital Encounter [address] [address] Thi Tomas MD Discharge Disposition: Discharge to home or self care 11/18/2024 6:15 AM RAILROAD PASSENGER AGENT - 11/18/2024 11:59 PM RAILROAD PASSENGER AGENT Hospital Encounter [address] [address] Diarrhea, unspecified type Discharge Disposition: Discharge to home or self care 11/16/2024 9:53 AM RAILROAD PASSENGER AGENT - 11/16/2024 11:59 PM RAILROAD PASSENGER AGENT Hospital Encounter [address] [address] Diarrhea, unspecified type; History of colitis Discharge Disposition: Discharge to home or self care 11/16/2024 9:00 AM RAILROAD PASSENGER AGENT Office Visit [facility] Medical Group Gastroenterology at [address] [place] [address] Som Reeves NP Diarrhea, unspecified type (Primary Dx); History of colitis; Bleeding hemorrhoids; Hepatic steatosis; Gastroesophageal reflux disease without esophagitis 11/16/2024 Results Follow-Up [facility] at [address] [place] [address] Som Reeves NP 11/08/2024 Telephone [facility] Medical [facility] Gastro[facility]ology at [address] [place] [address] Bria Julio from Last 3 Months Immunizations Immunization Administration Dates Next Due Influenza, Trivalent, IM (MDV) 07/23/2019 Influenza, Unspecified 07/23/2024,2023(Deferred: Patient Refused),08/26/2022 Pneumococcal Conjugate Pcv20 08/26/2022 Tdap 08/23/2020 ZOSTER Recombinant 03/19/2021,08/23/2020 Surgical History Surgery Date Site/Laterality Comments ANKLE DEBRIDEMENT Right clean up for bone spurs COLONOSCOPY Medical History Medical History Date Comments Hypertension Hypothyroidism Psoriasis Fatty liver Family History Medical History Relation Name Comments Diabetes Father Hyperlipidemia Father Hypertension Father Cancer Mother unsure of prima ry Cystic fibrosis Mother Thyroid disease Mother Colon cancer Neg Hx Prostate cancer Neg Hx Relation Name Status Comments Father Mother Social History Tobacco Use Types Packs/Day Years Used Date Smoking Tobacco: Never Passive Smoke Exposure: Never Smokeless Tobacco: Never Tobacco Cessation:Counseling Given: Not Answered AUDIT-C Answer Date Recorded Q1: How often do you have a drink containing alc ohol? Monthly or less 01/26/2025 Q2: How many drinks containi ng alcohol do you have on a typical day when you are drinking? 3 or 4 01/26/2025 Q3: How often do you have si x or more drinks on one occasion? Weekly 01/26/2025 PHQ-2 Answer Date Recorded PHQ-2 Total Score (If total score is 3 or more points, staff should administer the PHQ-9) 0 11/04/2024 Personal Safety Answer Date Recorded Have you ever been in or are you currently in a harmful physical or emotional relationship or is someone making you feel afraid or unsafe? Denies 12/28/2024 Sex and Gender Information Value Date Recorded Sex Assigned at Not on file Legal Sex Male 11:46 AM RAILROAD PASSENGER AGENT Gender Identity Not on file Sexual Orientation Not on file Obstetrics History Last Filed Vital Signs Vital Sign Reading Time Taken Comments Blood Pressure 149/91 01/26/2025 9:58 AM CDT Pulse 84 01/26/2025 9:58 AM CDT Temperature 36.8 C (98.2 F) 12/28/2024 3:26 PM CDT Respiratory Rate 18 12/28/2024 3:26 PM CDT Oxygen Saturation 97% 01/26/2025 9:58 AM CDT Inhaled Oxygen Concentration - - Weight 115.2 kg (254 lb) 01/26/2025 9:58 AM CDT Height 185.4 cm (6' 1 ) 01/26/2025 9:58 AM CDT Body Mass Index 33.51 01/26/2025 9:58 AM CDT Plan of Treatment Health Maintenance Due Date Last Done Comments Regular Well Visit/Exam 18-64 04/13/2025 04/13/2024 Depression Screening 11/04/2025 11/04/2024, 04/13/2024, 10/10/2023 Prostate Cancer Screening-PSA 11/04/2026 11/04/2024 DTaP/Tdap/Td Vaccine (2 - Td or Tdap) 08/23/203010/2019 Colon Cancer Screening-Colonoscopy 03/03/20342023 Zoster Vaccine Completed 03/19/2021, 08/23/2020 Pneumococcal vaccine <65 Completed 08/26/2022 Hepatitis C Screening Completed 04/12/2024 Influenza Vaccine Completed 07/23/2024, , 07/23/2019 Hepatitis B Screening Completed 11/04/2024 Procedures Procedure Name Priority Date/Time Associated Diagnosis Comments SIGMOID BAND LIGATION 12/28/2024 2:32 PM CDT Bleeding hemorrhoids Case Notes Hemorrhoid banding needed FLEXIBLE SIGMOIDOSCOPY 12:33 PM CDT PANCREATIC ELASTASE, STOOL Routine 11/18/2024 6:15 AM RAILROAD PASSENGER AGENT Diarrhea, unspecified type CALPROTECTIN, FECAL Routine 11/18/2024 6 :15 AM RAILROAD PASSENGER AGENT Diarrhea, unspecified type LEUKOCYTES, FECAL Routine 11/18/2024 6:1 5 AM RAILROAD PASSENGER AGENT Diarrhea, unspecified type H. PYLORI ANTIGEN, STOOL Routine 11/18/2024 6:15 AM RAILROAD PASSENGER AGENT Diarrhea, unspecified type CRYPTOSPORIDIUM AND GIARDIA ANTIGEN ASSAY Routine 11/18/2024 6:15 AM RAILROAD PASSENGER AGENT Diarrhea, unspecified type C. DIFFICILE TESTING Routine 11/18/2024 6:15 AM RAILROAD PASSENGER AGENT Diarrhea, unspecified type STOOL CULTURE Routine 11/18/2024 6:15 AM RAILROAD PASSENGER AGENT Diarrhea, unspecified type XR KUB Schedule ESPERANZA, Read Routine (Patient lives out of area) 11/16/2024 10:04 AM RAILROAD PASSENGER AGENT Diarrhea, unspecified type History of colitis PSA SCREEN Routine 11/04/2024 9:13 AM RAILROAD PASSENGER AGENT Prostate cancer screening HEPATITIS PANEL, ACUTE Routine 1:35 PM CDT Hepatic steatosis COLONOSCOPY 03/03/2024 8:11 AM CDT from Last 3 Months or Most Recently Relevant to Health Maintenance Results * Flexible Sigmoidoscopy (12/28/2024 12:33 PM CDT) Anatomical Region Laterality Modality Other Narrative Procedure Note Thi Tomas MD - 12/28/2024 12:33 PM CDT [facility] Patient Name: Cristina Rain Procedure Date: 12/28/2024 12:33 PM Date of : 1970 Admit Type: Outpatient Age: 54 Gender: Male Attending MD: Thi Tomas M.D. Room: [facility] END[facility] 1 Note Status: Finalized Patient Profile: This is a 54 year old male. The patient hadrecurrent episodes of bright red bleeding per rectum Procedure: Flexible Sigmoidoscopy Indications: Rectal hemorrhage Referring MD: Alfred Kelly M.D. Providers: Thi Tomas M.D. Impression: - Small external hemorrhoids. - Internal hemorrhoids. Medium-sized and congested with stigmata bleeding Banded. - No specimens collected. Recommendation: - Continue present medications. - Use [id number] fiber supplements daily. Medicines: Monitored Anesthesia Care Complications: No immediate complications. Estimated Blood Loss: Estimated blood loss: none. Procedure: Pre-Anesthesia Assessment: - Prior to the procedure, a History and Physicalwas performed, and patient medications and allergieswere reviewed. The patient's tolerance of previous anesthesia was also reviewed. The risks andbenefits of the procedure and the sedation options and risks were discussed with the patient. All questions were answered, and informed consent was obtained. Prior Anticoagulants: The patient has taken noanticoagulant or antiplatelet agents. ASA Grade Assessment: Per anesthesia note and evaluation. After reviewing the risks and benefits, the patient was deemed in satisfactory condition to undergo the procedure. The benefits, risks, and alternatives to theprocedure and sedation were discussed and informed consentwas obtained. The Endoscope [id number] was introduced through the anus and advanced to the the sigmoid colon. The flexible sigmoidoscopy was accomplished without difficulty. The patienttolerated the procedure well. The quality of the bowel preparation was adequate. Findings: Hemorrhoids were found on perianal exam. The sigmoid colon appeared normal. Diverticulosis noted in thesigmoid colon Internal hemorrhoids were found during retroflexion. The hemorrhoids were medium-sized congested with stigmata of bleeding. Three bandswere successfully placed. There was no bleeding during and at the end ofthe procedure. Electronically signed by Thi Tomas M.D. Thi Tomas M.D. 12/28/2024 3:00:36 PM Number of Addenda: 0 Note Initiated On: 12/28/2024 12:33 PM Procedure Code(s): --- Professional --- 07907, Sigmoidoscopy, flexible; with band ligation(s) (eg,hemorrhoids) Diagnosis Code(s): --- Professional --- K64.8, Other hemorrhoids K62.5, Hemorrhage of anus and rectum CPT copyright 2020 [employer]. All rights reserved. The codes documented in this report are preliminary and upon wall attendant reviewmay be revised to meet current compliance requirements. Recognized by the [employer] for promoting quality in endoscopy Thi Tomas MD ENDOSCOPY PROCEDURES Final Result * C. difficile testing Stool (11/18/2024 6:15 AM RAILROAD PASSENGER AGENT) Pathologist [facility] Result Negative Negative Toxin Result Negative Negative [facility] ([place]) C. diff result Negative, free toxin Negative, free toxin [facility] ([place]) C. diff interp Negative for toxigenic Clostridioides (Clostridium) difficile. Analysis was performed using a glutamate dehydrogenase antigen detection assay combined with a C. difficile toxin detection assay. [facility] ([place]) Stool 11/18/2024 6:15 AM RAILROAD PASSENGER AGENT 11/18/2024 7:46 AM RAILROAD PASSENGER AGENT Som Reeves ROLL ICER MACHINE LAB MICROBIOLOGY - GENERAL ORDERABLES Final Result Performing Organization Address [facility] Co de Phone Number JORGE CHEW ([place]) 1 [facility] [place] [address] * (ABNORMAL) Calprotectin, fecal (11/18/2024 6:15 AM RAILROAD PASSENGER AGENT) Calprotectin, fecal 105(H) <50.0 (Normal) mcg/g [facility] Comment: Interpretation: Borderline (50.0-120 mcg/g) Test Performed by: [facility] [address] [place], [place] [id number] [employer] Coxswain: Brittney Kinney Ph.D.; CLIA# [id number] Stool 11/18/2024 6:15 AM RAILROAD PASSENGER AGENT 11/18/2024 7:46 AM RAILROAD PASSENGER AGENT [facility] ICER MACHINE LAB BODY FLUIDS AND STOOLS ORDERABLES Final Result Performing Organization Address [facility] Co de Phone Number JORGE CHEW ([place]) 1 [facility] [place] [address] [facility] Lab * Leukocytes, fecal (11/18/2024 6:15 AM RAILROAD PASSENGER AGENT) WBC, fecal No leukocytes No leukocytes Comment: Interpretive Data Testing performed by microsopy. Current Interpretive Data was last revised on 2023 Stool 11/18/2024 6:15 AM RAILROAD PASSENGER AGENT 11/18/2024 7:46 AM RAILROAD PASSENGER AGENT [facility] ROLL ICER MACHINE LAB BODY FLUIDS AND STOOLS ORDERABLES Final Result Performing Organization Address City/[facility]/ZIP Co de Phone Number JORGE CHEW ([place]) 1 [facility] [place] [address] * Cryptosporidium and Giardia antigen assay Stool (11/18/2024 6:15 AM RAILROAD PASSENGER AGENT) Giardia Ag Negative Negative Comment:Testing performed by : [facility], [address] [place]., [address] Cryptosporidium Ag Negative Negative Oliva CHEW ([place]) Comment: Interpretive data: Testing performed by the [facility] using an immunoassay that detects Cryptosporidium and Giardia antigens in stool specimens. If comprehensive examination for ova and parasites is required, please request Ova and Parasite Examination . Testing performed by: [facility], [address] [place]., [address] Stool 11/18/2024 6:15 AM RAILROAD PASSENGER AGENT 11/18/2024 10:09 AM RAILROAD PASSENGER AGENT Som Reeves NP LAB MICROBIOLOGY - GENERAL ORDERABLES Final Result JORGE CHEW ([place]) [address] [place] [address] [place] [address] * (ABNORMAL) Pancreatic elastase, stool (11/18/2024 6:15 AM RAILROAD PASSENGER AGENT) Pancreatic elastase, stool 59(L) >200 (Normal) mcg/g [facility] Comment: Interpretation: Abnormal (<100 mcg/g); Consistent with pancreatic insufficiency Test Performed by: [place] [address] [employer] Cox[employer]ain: Brittney Kinney Ph.D.; CLIA# [id number] Stool 11/18/2024 6:15 AM RAILROAD PASSENGER AGENT 11/18/2024 7:46 AM RAILROAD PASSENGER AGENT Som Reeves ROLL ICER MACHINE LAB BODY FLUIDS AND STOOLS ORDERABLES Final Result REBECCAMANASA CHEW ([place]) 1 [facility] [place] [address] [facility] Lab * H. pylori antigen, stool Stool (11/18/2024 6:15 AM RAILROAD PASSENGER AGENT) H. pylori Ag, stool Negative Negative Comment: Interpretative Data Testing performed at the [facility] using the Curian HpSA lateral flow immunoassay that detects Helicobacter pylori antigen in feces. This test is FDA cleared and its performance characteristics have been verified by the performing laboratory. False negative H. pylori antigen results may occur in patients on antimicrobials, proton pump inhibitors, or bismuth preparations; if clinically indicated, testing should be repeated on a new specimen two weeks after discontinuing these treatments. Interpretative data last revised September 2020. Testing performed by: [facility], [address] [place] [address]., [id number] Stool 11/18/2024 6:15 AM RAILROAD PASSENGER AGENT 11/18/2024 12:29 PM RAILROAD PASSENGER AGENT Som Reeves ROLL ICER MACHINE LAB MICROBIOLOGY - GENERAL ORDERABLES Final Result JORGE CHEW ([place]) 1 [facility] Department [place] [address] * Stool culture Stool Rectum (11/18/2024 6:15 AM RAILROAD PASSENGER AGENT) Direct Specimen Exam Shiga Toxin Testing: Antigen detection assay for Shiga-toxin NEGATIVE for Shiga Toxin 1 and Shiga Toxin 2. Comment:Testing performed by : [facility], [address] [place] [address], [place]., [address] Report Final Report: No growth of enteric bacterial pathogens JORGE CHEW ([place]) Comment:Testing performed by : [facility], [address] [place] [address]., [id number] Stool (Rectum) 11/18/2024 6: 15 AM RAILROAD PASSENGER AGENT 11/18/2024 10:07 AM RAILROAD PASSENGER AGENT Narrative JORGE CHEW ([place]) - 11/22/2024 8:56 AM RAILROAD PASSENGER AGENT Testing performed by [facility] ([phone]). Routine stool cultures include procedures to detect Salmonella, Shigella, Edwardsiella, Aeromonas, Pleisiomonas, Campylobacter, Yersinia, E. coli O157, and Shiga-like toxins. Vibrio is cultured only upon special request. If Vibrio is suspected, please call the laboratory at [phone]. Interpretive data was last updated January 27, 2017. Som Reinaginettekenyatta ROLL ICER MACHINE LAB MICROBIOLOGY - GENERAL ORDERABLES Final Result JORGE CHEW [place]) 1 [facility] [place] [address] * XR Kub (11/16/2024 10:04 AM RAILROAD PASSENGER AGENT) Anatomical Region Laterality Modality Body, Abdomen N/A Computed Radiogr aphy 11/16/2024 12:1 3 PM RAILROAD PASSENGER AGENT Narrative 11/16/2024 12:14 PM RAILROAD PASSENGER AGENT EXAM DESCRIPTION: XR KUB REASON FOR STUDY: Having diarrhea issues. On Wegovy. Rule out constipation as cause of diarrhea. What is fecal load and gas pattern?, What is stool and gas pattern? Rule out constipation. Complaints of diarrhea x 1 month. No complaints of pain. TECHNIQUE: 1 radiographic view of the abdomen. COMPARISON: 02/27/2024 FINDINGS: BOWEL: Nonobstructive gas pattern. Moderate colonic stool burden primarily within the descending and sigmoid colon. SOFT TISSUES: No abnormal calcifications. LINES/TUBES: None. BONES: Levocurvature of the spine appears positional. IMPRESSION: Nonobstructive bowel gas pattern. Moderate colonic stool burden. THIS IS AN ELECTRONICALLY VERIFIED FINAL REPORT 11/16/2024 12:14 PM - Electronically signed by Enzo Morgan M.D. MM: MM Report ID: [id number] Reading Location: [id number] Procedure Note Enzo Morgan MD - 11/16/2024 EXAM DESCRIPTION: XR KUB REASON FOR STUDY: Having diarrhea issues. On Wegovy. Rule outconstipation as cause of diarrhea. What is fecal load and gas pattern?, What is stooland gas pattern? Rule out constipation. Complaints of diarrhea x 1 month. No complaints of pain. TECHNIQUE: 1 radiographic view of the abdomen. COMPARISON: 02/27/2024 FINDINGS: BOWEL: Nonobstructive gas pattern. Moderate colonic stool burdenprimarily within the descending and sigmoid colon. SOFT TISSUES: No abnormal calcifications. LINES/TUBES: None. BONES: Levocurvature of the spine appears positional. IMPRESSION: Nonobstructive bowel gas pattern. Moderate colonic stool burden. THIS IS AN ELECTRONICALLY VERIFIED FINAL REPORT 11/16/2024 12:14 PM - Electronically signed by Enzo Morgan M.D. MM: MM Report ID: [id number] Reading Location: [id number] Som Reeves ROLL ICER MACHINE IMG XR PROCEDURES F inal Result * PSA screen (11/04/2024 9:13 AM RAILROAD PASSENGER AGENT) PSA-Total 3.14 <=3.90 ng/mL Comment: Interpretive Data AGE SEX REFERENCE INTERVAL 0 minutes-150 years Female None 0 minutes-49 years Male None 50-59 years Male 0-3.90 60-69 years Male 0-5.40 70-79 years Male 0-6.20 80-150 years Male 0-6.20 The [employer] PSA Total assay procedure was used. Results from different manufacturers or methods may not be comparable. Serial testing should be performed using the same method. Current interpretive data last revised 22. Blood 11/04/2024 9:13 AM RAILROAD PASSENGER AGENT 11/04/2024 9:17 PM RAILROAD PASSENGER AGENT Alfred Kelly MD LAB BLOOD ORDERABLES Fi nal Result JORGE SANDOVAL [address] Department [place] [address] * Hepatitis panel, acute Blood (04/12/2024 1:35 PM CDT) Hep A IgM Nonreactive Nonreactive Comment: Interpretive Data: If Hep A IgM Ab is reported as Equivocal, a new sample should be drawn in two weeks for testing. Current interpretive data was last revised on 19. Testing performed by: [facility], [address] [place] [address]., [id number] Hep B core IgM Nonreactive Nonreactive C JACKELINE CHEW ([place]) Comment: Interpretive Data If HepB Core IgM Ab is reported as Equivocal, a new sample should be drawn in two weeks for testing. Current interpretive data was last revised on 19. Testing performed by: [facility], [address] [place] [address]., [id number] Hep C Ab Nonreactive Nonreactive [facility] ([place]) Comment: Interpretive Data Nonreactive: Antibodies to HCV not detected. Does NOT exclude the possibility of recent exposure to HCV. Equivocal: Equivocal for HCV antibodies. Supplemental molecular testing will be automatically performed to determine infection status in accordance with current CDC screening recommendations. Reactive: Positive for HCV antibodies. This may represent current or past HCV infection. Supplemental molecular testing will be automatically performed to determine current infection status in accordance with current CDC screening recommendations. Interpretive data was last revised on 2019. Testing performed by: [facility], [address] [place] [address]., [id number] HepBsAg Nonreactive Nonreactive [facility] ([place]) Comment:Testing performed by : [facility], [address] [place] [address]., [id number] Blood
== END 2025-02-03 21:52 | disposition home or self-care (01) ==
PROVIDERS: Emergency Provider Student in an Organized Health Care Education/Training Program
DX: H81.10 Benign paroxysmal vertigo, unspecified ear (principal); I10 Essential (primary) hypertension
CPT/HCPCS: 36415; 70450; 71046; 80053; 85025; 93005; 96361; 96374; 96375; 99284; J1200; J2765; J7030